=== PATIENT | female | born 1970 | race Caucasian/White ===

== ENCOUNTER → 2017-05-24 | Outpatient (CLI) | payer BC | LOC: BRMIMAGING 08:02 | PROVIDERS: ATTEND Family Medicine | DX: Z12.31 Encounter for screening mammogram for malignant neoplasm of breast (principal); R16.2 Hepatomegaly with splenomegaly, not elsewhere classified; K76.0 Fatty (change of) liver, not elsewhere classified; Z80.3 Family history of malignant neoplasm of breast | CPT/HCPCS: 76700-PO; G0202 ==

== ENCOUNTER → 2018-07-18 | Outpatient (CLI) | payer BC | LOC: BRMIMAGING 15:04 | PROVIDERS: ATTEND Family Medicine | DX: Z12.31 Encounter for screening mammogram for malignant neoplasm of breast (principal); Z80.3 Family history of malignant neoplasm of breast ==